=== PATIENT | male | born 1980 | race Caucasian/White ===

== ENCOUNTER 2021-03-20 22:23 | Emergency (ER) | payer BC, SELFPAY ==
[2021-03-20 22:31] VITALS: BP 170/103; PULSE 90; RESP 16; TEMP 36.4; O2SAT 98; BMI 25.1
--- NOTE | 2021-03-21 00:34 | ED_ITS ---
HPI - COVID General: Chief Complaint: COVID symptoms Stated Complaint: sob, wants covid test Time Seen by Provider: 03/21/21 00:25 Triage information: Has fever, cough or shortness of breath . No known COVID + exposure last 14 days History of Present Illness: HPI Narrative: 41-year-old male patient comes in today with complaints of sinus pressure, difficulty breathing through his nose, with worse symptoms when lying flat. Patient reports illness for about 10 to 14 days. Patient was concerned he may have COVID-19 as his brother is ill with it in the hospital. Patient denies any chest congestion or cough. Patient appears mildly unwell but not toxic. Patient appears in no pain. COVID 19 common symptoms: positive nasal congestion COVID Results: SARS-CoV-2 RNA (RT-PCR) Pending 03/20/21 22:36 03/20/21 Review of Systems ENMT: Reports: nasal congestion and sinus pain Physical Exam Const: COMMON NORMALS: patient oriented x3 and alert HENMT: COMMON NORMALS: TM's normal bilaterally NOSE: Nasal discharge present TYMPANIC MEMBRANE: TM's normal bilaterally Resp: COMMON NORMALS: clear to auscultation bilaterally EFFORT & INSPECTION: Yes able to speak in complete sentences AUSCULTATION: clear to auscultation bilaterally Cardio: COMMON NORMALS: regular rate and regular rhythm RATE: regular rate RHYTHM: regular rhythm GI: AUSCULTATION: Yes normoactive bowel sounds Extremity: COMMON NORMALS: normal to inspection Neuro: COMMON NORMALS: patient oriented x3 SENSORIUM/ORIENTATION: Yes alert Psych: ATTITUDE: Yes calm Skin: COMMON NORMALS: no rashes or lesions noted GENERAL SKIN EXAM: no rashes or lesions noted Course Vital Signs: Vital signs: Vital Signs Temperature 97.6 F 03/20/21 22:31 Pulse Rate 90 03/20/21 22:31 Respiratory Rate 16 03/20/21 22:31 Blood Pressure 170/103 03/20/21 22:31 Pulse Oximetry 98 03/20/21 22:31 MDM - COVID MDM Narrative: Medical decision making narrative: 41-year-old male patient comes in today with complaints of sinus pressure and nasal congestion. On exam lungs are clear to auscultation. Patient has a nasal turbinate erythema with congestion. No acute distress was noted. Patient appeared mildly unwell but not toxic. Vital signs were normal except for some elevation in blood pressure. Differential diagnosis includes rhinosinusitis bacterial, COVID-19, upper r espiratory infection. COVID-19 test was sent to [facility] labs for evaluation. Patient be treated for a bacterial rhinosinusitis due to the length of time patient has been ill. Patient was given a dose of doxycycline, 8 mg of dexamethasone in the ER to start medications. Patient will continue with Flonase and doxycycline outpatient. Patient was also given some Afrin in the ER to help with his nasal congestion. COVID Results: SARS-CoV-2 RNA (RT-PCR) Pending 03/20/21 22:36 03/20/21 Discharge Plan Discharge Patient Disposition: Home Clinical Impression: Acute rhinosinusitis, Exposure to severe acute respiratory syndrome coronavirus 2 (SARS-CoV-2) Condition: Stable Prescriptions: New doxycycline monohydrate 100 mg capsule 100 mg PO BID 7 Days Qty: 14 RF: 0 fluticasone propionate 50 mcg/actuation spray,suspension 1 spray intranasal BID Qty: 16 RF: 0 Discharge Orders: Discharge ED (Routine); Ordered 03/21/21 Ordered By: Boris Figueroa Discharge Diet: Usual diet Discharge Activity: Increase activity as tolerated Patient Instructions: Rhinosinusitis (ED) Activity Restrictions/Additional Instructions: Use fluticasone steroid nasal spray 1 spray each nostril twice a day until symptom relief. Use Afrin 2 sprays each nostril 3 times a day for nasal decongestant. Drink plenty of water. Take doxycycline 100 mg twice a day for the next 7 days. Follow-up with primary care as needed. Return to the ER for new concerns. We will contact you with the results of your quest COVID-19 test if it is positive. Coding Level of Care Code ED Cloth Dyeing Range Tender for Michelet Vigil
[2021-03-21] MEDS: doxycycline 100 mg Tablet PO (00:45)
[2021-03-21] MEDS: dexamethasone 4 mg Tablet 8 MG PO (00:45)
[2021-03-21] MEDS: oxymetazoline 0.05% Nasal Spray 15 mL 2 SPRAY NOSTRIL-B (00:47)
[2021-03-21 00:51] VITALS: PULSE 70; RESP 16; O2SAT 97
[2021-03-23 02:37] LABS: Quest SARS-CoV-2 RNA DETECTED (NOT DETECTED)
--- NOTE | 2021-03-23 09:18 | PC.NURSE ---
Notified of Positive COVID test
== END 2021-03-21 00:51 | disposition home or self-care (01) ==
PROVIDERS: Emergency Medicine; Emergency Provider Nurse Practitioner Family
DX: U07.1 COVID-19 (principal); J01.90 Acute sinusitis, unspecified
CPT/HCPCS: 87635; 99283; J8540

== ENCOUNTER 2022-06-16 13:59 | Day surgery (SDC) | payer BC, SELFPAY ==
[2022-06-16 14:04] VITALS: BP 187/118; PULSE 62; RESP 16; TEMP 36.7; O2SAT 99
--- NOTE | 2022-06-16 15:03 | ED_ITS ---
HPI - General Adult General: Chief complaint: Nausea/Vomiting/Diarrhea Stated complaint: UC sent for throat blockage Time Seen by Provider: 06/16/22 15:00 Source: patient Mode of arrival: ambulatory History of Present Illness: 42-year-old male presents emergency room with difficulty swallowing. He was eating some steak bits last night began to feel like he could not swallow has not been able to even swallow a little bit of water at this point. He said this happened multiple times before but usually is able to get it to follow through. No episodes of hematemesis. Onset (ago): hour(s) Severity: severe Relieving factors: none Exacerbating factors: none Associated symptoms: Reports nausea; Deny chest pain, confusion, cough, diaphoresis, decreased appetite, dyspnea, fevers/chills, headache(s), malaise, rash, palpitations, seizures, short of breath, syncope, vomiting or weakness Treatments prior to arrival: none Review of Systems Const: Denies: fever(s), chills, fatigue, malaise or diaphoresis ENMT: Reports: throat pain and odynophagia; Denies: ear or mastoid pain, nasal discharge or nasal congestion Card: Denies: chest pain, palpitations or syncope Resp: Denies: dyspnea GI: Reports: nausea; Denies: vomiting : Denies: flank pain, dysuria, urinary frequency or urinary urgency Skin/Breast: Denies: rash Neuro: Denies: headache(s) or confusion [facility] ED PFSH: Medical History Gastroenteritis Social History Smoking and tobacco status: never smoked Physical Exam Const: GENERAL APPEARANCE: cooperative and comfortable ORIENTATION/CONSCIOUSNESS: Yes awake, Yes oriented to person, Yes oriented to place and Yes oriented to time HENMT: COMMON NORMALS: normocephalic, atraumatic and hearing grossly normal bilaterally HEAD & SCALP: normocephalic and atraumatic Resp: COMMON NORMALS: normal respiratory effort, No retractions, No use of accessory muscles and clear to auscultation bilaterally AUSCULTATION: clear to auscultation bilaterally Cardio: COMMON NORMALS: regular rate, regular rhythm and No murmurs present (Cardio) RATE: regular rate RHYTHM: regular rhythm GI: COMMON NORMALS: Soft to palpation and No hepatosplenomegaly present AUSCULTATION: Yes normoactive bowel sounds PALPATION: Yes Soft to palpation, No Tenderness to palpation present (GI), No Guarding due to palpation present (GI) and Yes No hepatosplenomegaly present Extremity: COMMON NORMALS: normal to inspection, capillary refill normal, no clubbing, cyanosis or edema, no calf tenderness and no pedal edema Neuro: SENSORIUM/ORIENTATION: Yes oriented to person, Yes oriented to place and Yes oriented to time Skin: COMMON NORMALS: no rashes or lesions noted GENERAL SKIN EXAM: no rashes or lesions noted Course Vital Signs: Vital signs: Vital Signs Temperature 98.0 F 06/16/22 14:04 Pulse Rate 60 06/16/22 16:04 Respiratory Rate 16 06/16/22 14:04 Blood Pressure 177/95 06/16/22 16:04 Pulse Oximetry 98 06/16/22 16:04 Oxygen Delivery Me thod Room Air 06/16/22 16:04 MDM - General Adult Medical Decision Making Esophageal food bolus patient will need EGD. Discussed Dr. Diana he was prepped for the GI lab and taken directly from ER to the GI lab he will be discharged home from outpatient GI lab. Medical Records I reviewed the patient's medical records. Lab Data I reviewed the patient's lab results. 06/16/22 14:55 06/16/22 14:55 Laboratory Results WBC 5.4 10^3/uL (4.0-10.0) 06/16/22 14:55 RBC 5.36 10^6/uL (4.1-5.3) H 06/16/22 14:55 Hgb 16.8 g/dL (11.7-16.6) H 06/16/22 14:55 Hct 50.7 % (42.0-52.0) 06/16/22 14:55 MCV 94.6 fl (80-94) H 06/16/22 14:55 MCH 31.3 pg (28.0-34.0) 06/16/22 14:55 MCHC 33.1 g/dL (30.0-36.0) 06/16/22 14:55 RDW 13.2 % (12.1-15.1) 06/16/22 14:55 Plt Count 273 10^3/cmm (130-400) 06/16/22 14:55 MPV 10.3 fL (7.4-10.4) 06/16/22 14:55 Neut % (Auto) 57.0 % 06/16/22 14:55 Lymph % (Auto) 28.1 % 06/16/22 14:55 [place] % (Auto) 11.0 % 06/16/22 14:55 Eos % (Auto) 2.8 % 06/16/22 14:55 Baso % (Auto) 0.9 % 06/16/22 14:55 Neut # (Auto) 3.10 10^3/uL (1.8-7.7) 06/16/22 14:55 Lymph # (Auto) 1.5 10^3/uL (0.8-4.8) 06/16/22 14:55 [place] # (Auto) 0.6 10^3/uL (0.2-0.9) 06/16/22 14:55 Eos # (Auto) 0.2 10^3/uL (0.0-0.8) 06/16/22 14:55 Baso # (Auto) 0.1 10^3/uL (0.0-0.1) 06/16/22 14:55 Nucleated RBC % (auto) 0 % 06/16/22 14:55 Nucleated RBCs # 0.0 /100WBC 06/16/22 14:55 Sodium 139 mmol/L (136-145) 06/16/22 14:55 Potassium 4.4 mmol/L (3.5-5.1) 06/16/22 14:55 Chloride 105 mmol/L (98-107) 06/16/22 14:55 Carbon Dioxide 25 mmol/L (22-29) 06/16/22 14:55 Anion Gap 13.4 (5-19) 06/16/22 14:55 BUN 9 mg/dL (6-20) 06/16/22 14:55 Creatinine 1.0 mg/dL (0.7-1.2) 06/16/22 14:55 GFR Calculation 81.9 mL/min (90-130) L 06/16/22 14:55 Glucose 103 mg/dL (65-115) 06/16/22 14:55 Calculated Osmolality 287 mOsm/kg (285-295) 06/16/22 14:55 Calcium 9.2 mg/dL (8.5-10.5) 06/16/22 14:55 Total Bilirubin 0.3 mg/dL (0.15-1.2) 06/16/22 14:55 AST 19 U/L (0-40) 06/16/22 14:55 ALT 26 U/L (0-41) 06/16/22 14:55 Alkaline Phosphatase 83 U/L (40-130) 06/16/22 14:55 Total Protein 7.5 g/dL (6.6-8.7) 06/16/22 14:55 Albumin 4.4 g/dL (3.5-5.2) 06/16/22 14:55 Globulin 3.1 g/dL (1.3-4.6) 06/16/22 14:55 Lipase 41 U/L (13-60) 06/16/22 14:55 Discharge Plan Discharge Patient Disposition: Placed in Observation Clinical Impression: Food impaction of esophagus Condition: Stable Coding Level of Care Code ED Interactive Media Marketing Director for Michelet Vigil
[2022-06-16 15:06] LABS: Basophils # 0.1 10^3/uL (0.0-0.1); Basophils % 0.9 %; Eosinophils # 0.2 10^3/uL (0.0-0.8); Eosinophils % 2.8 %; Hematocrit 50.7 % (42.0-52.0); Hemoglobin 16.8 g/dL (11.7-16.6); Lymphocytes # 1.5 10^3/uL (0.8-4.8); Lymphocytes % 28.1 %; Mean Corpuscular HGB Conc 33.1 g/dL (30.0-36.0); Mean Corpuscular Hemoglobin 31.3 pg (28.0-34.0); Mean Corpuscular Volume 94.6 fl (80-94); Mean Platelet Volume 10.3 fL (7.4-10.4); Monocytes # 0.6 10^3/uL (0.2-0.9); Nucleated Red Blood Cells % 0 %; Platelet Count 273 10^3/cmm (130-400); Red Blood Count 5.36 10^6/uL (4.1-5.3); Red Cell Distribution Width 13.2 % (12.1-15.1); White Blood Count 5.4 10^3/uL (4.0-10.0)
--- NOTE | 2022-06-16 15:15 | DCPLANNER ---
international bank manager seen patient due to no primary care physician. international bank manager offered to help patient get established with a primary care physician - patient declines at this time.
[2022-06-16 15:23] LABS: Alanine Aminotransferase 26 U/L (0-41); Albumin Level 4.4 g/dL (3.5-5.2); Alkaline Phosphatase 83 U/L (40-130); Anion Gap 13.4 (5-19); Aspartate Amino Transferase 19 U/L (0-40); Blood Urea Nitrogen 9 mg/dL (6-20); Calcium 9.2 mg/dL (8.5-10.5); Carbon Dioxide 25 mmol/L (22-29); Chloride 105 mmol/L (98-107); Globulin 3.1 g/dL (1.3-4.6); Glomerular Filtration Rate 81.9 mL/min (90-130); Glucose 103 mg/dL (65-115); Lipase 41 U/L (13-60); Osmolality Calculated 287 mOsm/kg (285-295); Potassium 4.4 mmol/L (3.5-5.1); Sodium 139 mmol/L (136-145); Total Bilirubin 0.3 mg/dL (0.15-1.2); Total Protein 7.5 g/dL (6.6-8.7)
[2022-06-16] MEDS: sodium chloride 0.9% 1,000 ML 999 ML IV (15:48)
[2022-06-16 16:04] VITALS: BP 177/95; PULSE 60; O2SAT 98
--- NOTE | 2022-06-16 16:24 | ANES.PREANE2 ---
Pre-Anesthetic Assessment Height/Weight: Height 1.78 m Weight 86.183 kg Temp Pulse Resp BP Pulse Ox O2 Del Method 98.0 F 60 16 177/95 98 Room Air 06/16/22 14:04 06/16/22 16:04 06/16/22 14:04 06/16/22 16:04 06/16/22 16:04 06/16/22 16:04 Preop Diagnosis: Food Bolus Familial anesthetic complications: None Was Beta Adeola taken within 24 hours: N/A Was Clonidine taken within 24 hours: N/A Social No alcohol and No tobacco Exam alert, oriented x 3 and regular rate & rhythm Airway Submandibular: within normal limits Cervical ROM: within normal limits Mallampati: Class II Dentition: full History/ROS No significant history except as noted Pulmonary None reported CV/HEM None reported None reported Hepatic None reported GI Food bolus Metabolic None reported Musc/skel None reported Neuropsych None reported Anesthetic Plan ASA status: 1 Anesthesia: Anesthesia Evaluation and General Risk of > 500 ml blood loss (7ml/kg in children): No Medications/Allergies Home Medications Medication Instructions Recorded Confirmed Last Taken Type No Known Home Medications 05/15/21 06/16/22 Unknown History Allergies Allergy/AdvReac Type Severity Reaction Status Date / Time No Known Allergies Allergy Verified 06/16/22 14:09 [facility] Anesthesia Medical History Gastroenteritis Social History Smoking and tobacco status: never smoked Data Anesthesia 06/16/22 14:55 06/16/22 14:55 Short CBC 06/16/22 Range/Units 14:55 WBC 5.4 (4.0-10.0) 10^3/uL Hgb 16.8 H (11.7-16.6) g/dL Hct 50.7 (42.0-52.0) % MCV 94.6 H (80-94) fl Plt Count 273 (130-400) 10^3/cmm Neut % (Auto) 57.0 % Neut # (Auto) 3.10 (1.8-7.7) 10^3/uL BMP 06/16/22 14:55 Sodium 139 Potassium 4.4 Chloride 105 Carbon Dioxide 25 BUN 9 Creatinine 1.0 Glucose 103 Calcium 9.2 Liver Function 06/16/22 Range/Units 14:55 Total Bilirubin 0.3 (0.15-1.2) mg/dL AST 19 (0-40) U/L ALT 26 (0-41) U/L Alkaline Phosphatase 83 (40-130) U/L Albumin 4.4 (3.5-5.2) g/dL Cardiac Studies: No Data to Display
[2022-06-16] MEDS: sodium chloride 0.9% 1,000 ML 30 ML IV (16:34)
--- NOTE | 2022-06-16 16:35 | P.HP_ITS ---
Providers/Chief Complaint Chief Complaint: UC sent for throat blockage History of Present Illness Ata Summers is a 42 year old male who was eating steak and shrimp last night and has since felt food stuck in his distal esophagus. He is unable to drink water but he is able to swallow his saliva. He has some dull constant epigastric pain that does not radiate Review of Systems General: Reports: 10 or more systems reviewed and unremarkable except in HPI and below Medications/Allergies Home Medications Medication Instructions Recorded Confirmed Last Taken Type No Known Home Medications 05/15/21 06/16/22 Unknown History Allergies Allergy/AdvReac Type Severity Reaction Status Date / Time No Known Allergies Allergy Verified 06/16/22 14:09 PFSH Acute PFSH: Medical History Gastroenteritis Social History Smoking and tobacco status: never smoked Vitals/I&O/Wt Last Vital Signs Temp 98.0 F 06/16/22 14:04 Pulse 60 06/16/22 16:04 Resp 16 06/16/22 14:04 BP 177/95 06/16/22 16:04 Pulse Ox 98 06/16/22 16:04 O2 Del Method Room Air 06/16/22 16:04 Weight last 48 hrs Weight 190 lb Physical Exam Narrative: General : Patient is well developed , no acute distress, oriented x3 Head : Normal cephalic, a-traumatic. Ears : Pinnae and external canal are normal. Hearing is normal. Eyes : PERRLA, Sclera and injection are normal. No conjunctival discharge. Nose : Mucous membranes are without erythema. Throat : buccal mucosa is normal, gums are without significant recession or hypertrophy. Lungs : Equal chest rise bilaterally, no use of accessory muscles, trachea is midline. Cor : Rate and rhythm are normal. Abdomen : Soft, ND, NT, no g/r/m Extremities : No edema, no cyanosis or clubbing, dorsalis pedis pulses are present bilaterally, non-tender to palpation of calves. Upper extremities are normal bilaterally. Back : non-tender to palpation, no CVA tenderness. Neuro : CN II - XII intact, Upper and lower extremities have equal and full st rength Data 06/16/22 14:55 06/16/22 14:55 A&P Assessment and plan (1) Food impaction of esophagus: Plan EGD The risks and benefits of the procedure, including bleeding, infection, intestinal perforation requiring surgery, missed lesion were explained to the patient. The patient is understanding of the risks and wishes to proceed. I will I will likely discharge him from the GI lab with follow-up in my office in 2 weeks Attestations Medical Necessity Statement*: Patient will likely be discharged home after the procedure Coding Level of Care Code Acute Code for Chg Fwd Diagnoses Food impaction of esophagus T18.128A
--- NOTE | 2022-06-16 16:51 | PM.DCS ---
Discharge Providers Date of Discharge: June 16, 2022 Attending Provider at Discharge: Magdaleno Diana DO Diagnoses at Discharge Discharge Diagnosis (1) Food impaction of esophagus: Status: Acute Reason for Visit Reason for Visit: UC sent for throat blockage Hospital Course Hospital Course Is a very pleasant 42-year-old gentleman who came to the hospital with a 12-hour history of esophageal food impaction. He underwent an EGD with clearance of the food bolus. He was discharged home in good condition Physical Exam Narrative: General : Patient is well developed , no acute distress, oriented x3 Head : Normal cephalic, a-traumatic. Ears : Pinnae and external canal are normal. Hearing is normal. Eyes : PERRLA, Sclera and injection are normal. No conjunctival discharge. Nose : Mucous membranes are without erythema. Throat : buccal mucosa is normal, gums are without significant recession or hypertrophy. Lungs : Equal chest rise bilaterally, no use of accessory muscles, trachea is midline. Cor : Rate and rhythm are normal. Abdomen : Soft, ND, NT, no g/r/m Extremities : No edema, no cyanosis or clubbing, dorsalis pedis pulses are present bilaterally, non-tender to palpation of calves. Upper extremities are normal bilaterally. Back : non-tender to palpation, no CVA tenderness. Neuro : CN II - XII intact, Upper and lower extremities have equal and full strength Discharge Data Studies Completed and Pending Pending at discharge Category Date Time Status Urinalysis Stat Lab 06/16/22 14:33 Uncollected Laboratory Results WBC 5.4 10^3/uL (4.0-10.0) 06/16/22 14:55 RBC 5.36 10^6/uL (4.1-5.3) H 06/16/22 14:55 Hgb 16.8 g/dL (11.7-16.6) H 06/16/22 14:55 Hct 50.7 % (42.0-52.0) 06/16/22 14:55 MCV 94.6 fl (80-94) H 06/16/22 14:55 MCH 31.3 pg (28.0-34.0) 06/16/22 14:55 MCHC 33.1 g/dL (30.0-36.0) 06/16/22 14:55 RDW 13.2 % (12.1-15.1) 06/16/22 14:55 Plt Count 273 10^3/cmm (130-400) 06/16/22 14:55 MPV 10.3 fL (7.4-10.4) 06/16/22 14:55 Neut % (Auto) 57.0 % 06/16/22 14:55 Lymph % (Auto) 28.1 % 06/16/22 14:55 [place] % (Auto) 11.0 % 06/16/22 14:55 Eos % (Auto) 2.8 % 06/16/22 14:55 Baso % (Auto) 0.9 % 06/16/22 14:55 Neut # (Auto) 3.10 10^3/uL (1.8-7.7) 06/16/22 14:55 Lymph # (Auto) 1.5 10^3/uL (0.8-4.8) 06/16/22 14:55 [place] # (Auto) 0.6 10^3/uL (0.2-0.9) 06/16/22 14:55 Eos # (Auto) 0.2 10^3/uL (0.0-0.8) 06/16/22 14:55 Baso # (Auto) 0.1 10^3/uL (0.0-0.1) 06/16/22 14:55 Nucleated RBC % (auto) 0 % 06/16/22 14:55 Nucleated RBCs # 0.0 /100WBC 06/16/22 14:55 Sodium 139 mmol/L (136-145) 06/16/22 14:55 Potassium 4.4 mmol/L (3.5-5.1) 06/16/22 14:55 Chloride 105 mmol/L (98-107) 06/16/22 14:55 Carbon Dioxide 25 mmol/L (22-29) 06/16/22 14:55 Anion Gap 13.4 (5-19) 06/16/22 14:55 BUN 9 mg/dL (6-20) 06/16/22 14:55 Creatinine 1.0 mg/dL (0.7-1.2) 06/16/22 14:55 GFR Calculation 81.9 mL/min (90-130) L 06/16/22 14:55 Glucose 103 mg/dL (65-115) 06/16/22 14:55 Calculated Osmolality 287 mOsm/kg (285-295) 06/16/22 14:55 Calcium 9.2 mg/dL (8.5-10.5) 06/16/22 14:55 Total Bilirubin 0.3 mg/dL (0.15-1.2) 06/16/22 14:55 AST 19 U/L (0-40) 06/16/22 14:55 ALT 26 U/L (0-41) 06/16/22 14:55 Alkaline Phosphatase 83 U/L (40-130) 06/16/22 14:55 Total Protein 7.5 g/dL (6.6-8.7) 06/16/22 14:55 Albumin 4.4 g/dL (3.5-5.2) 06/16/22 14:55 Globulin 3.1 g/dL (1.3-4.6) 06/16/22 14:55 Lipase 41 U/L (13-60) 06/16/22 14:55 Procedures Performed EGD with clearance of esophageal food impaction Vitals Last Vital Signs Temp 98.0 F 06/16/22 14:04 Pulse 60 06/16/22 16:04 Resp 16 06/16/22 14:04 BP 177/95 06/16/22 16:04 Pulse Ox 98 06/16/22 16:04 O2 Del Method Room Air 06/16/22 16:04 Discharge Plan Discharge Patient Disposition: Home Condition: Stable Prescriptions: No Action No Known Home Medications Discharge Orders: Discharge Order (Routine); Ordered 06/16/22 Ordered By: Magdaleno Diana Referrals: Magdaleno Diana DO [Physician] - 2 weeks Discharge Diet: Advance as tolerated Discharge Activity: Resume usual activity Discharge Attestations Time Spent in Discharge Care*: less than 30 min Quality Metrics Clinical Quality Measures [ No reported AMI, CVA or VTE this stay] Coding Level of Care Code Acute Code for Chg Fwd Diagnoses Food impaction of esophagus T18.128A
[2022-06-16 17:00] VITALS: BP 159/103; PULSE 64; RESP 18; TEMP 36.2; O2SAT 99
--- NOTE | 2022-06-16 17:10 | ANE.PACU2 ---
Inpatient post-anesthesia follow up: Airway intact: Yes Vital signs: Temperature 97.2 F Pulse Rate 64 Respiratory Rate 18 Blood Pressure 159/103 Pulse Oximetry 99 Oxygen Delivery Me thod Room Air Oxygen Flow Rate Fraction of Inspir ed Oxygen Hydration adequate: Yes Nausea and vomiting: No Pain level: 2 Mental status: Baseline
[2022-06-16 17:13] VITALS: BP 158/106; PULSE 62; RESP 18; O2SAT 98
[2022-06-16 17:28] VITALS: BP 155/99; PULSE 63; RESP 18; O2SAT 99
== END 2022-06-16 17:52 | disposition home or self-care (01) ==
LOC: ER 15:05 → GILAB 15:41
PROVIDERS: Emergency Provider Family Medicine; Visit Provider Surgery
PROC: 0DJ08ZZ Inspection of Upper Intestinal Tract, Via Natural or Artificial Opening Endoscopic (ICD-10-PCS; CPT 43235; principal; 2022-06-16 16:30)
DX: X58.XXXA Exposure to other specified factors, initial encounter (principal); T18.128A Food in esophagus causing other injury, initial encounter; Y99.9 Unspecified external cause status
CPT/HCPCS: 36415; 43247; 80053; 83690; 85025; J0330; J1100; J1610; J2405; J2704; J3010; J3490; J7030

== ENCOUNTER 2022-07-24 06:28 | Day surgery (SDC) | payer BC, SELFPAY ==
[2022-07-22 10:54] VITALS: BMI 26.4
[2022-07-24 06:45] VITALS: BP 135/98; PULSE 66; RESP 18; TEMP 36.5; O2SAT 98
[2022-07-24] MEDS: sodium chloride 0.9% 1,000 ML 30 ML IV (06:54)
--- NOTE | 2022-07-24 06:58 | ANES.PREANE2 ---
Pre-Anesthetic Assessment Height/Weight: Height 1.8 m Weight 86.183 kg Temp Pulse Resp BP Pulse Ox O2 Del Method 97.7 F 66 18 135/98 98 Room Air 07/24/22 06:45 07/24/22 06:45 07/24/22 06:45 07/24/22 06:45 07/24/22 06:45 07/24/22 06:45 Operation Date: 07/24/22 08:00 [place] Procedures p [id number] egd with balloon dialation K21.9,R13.10(Not Applicable) - Magdaleno Diana DO Familial anesthetic complications: none Was Beta Adeola taken within 24 hours: N/A Was Clonidine taken within 24 hours: N/A Last intake: Intake Last Liquid Date 07/23/22 Last Liquid Time 22:00 Last Solid Date 07/23/22 Last Solid Time 22:00 Social No alcohol and No tobacco Exam alert and oriented x 3 Airway Submandibular: within normal limits Cervical ROM: within normal limits Mallampati: Class I Dentition: full History/ROS No significant complaints Pulmonary None reported CV/HEM None reported None reported Hepatic None reported GI None reported Metabolic None reported Musc/skel None reported Neuropsych None reported Anesthetic Plan ASA status: 1 Anesthesia: Anesthesia Evaluation and MAC Risk of > 500 ml blood loss (7ml/kg in children): No Medications/Allergies Home Medications Medication Instructions Recorded Confirmed Last Taken Type omeprazole 40 mg capsule,delayed 40 mg PO BID 6 weeks #84 caps 07/02/22 07/24/22 07/23/22 Rx release cetirizine 10 mg tablet 10 mg PO DAILY PRN Allergy Symptoms 07/22/22 07/24/22 07/23/22 History Allergies Allergy/AdvReac Type Severity Reaction Status Date / Time protonix Allergy flu like Uncoded 07/22/22 10:50 symtoms Current Medications Generic Name Dose Route Start Last Admin Trade Name Freq PRN Reason Stop Dose Admin Sodium Chloride 1,000 mls @ 30 mls/hr 07/24/22 06:45 07/24/22 06:54 Sodium Chloride 0.9% IV 07/25/22 06:44 30 mls/hr .Q24H RAJENDRA Administration PFSH Anesthesia Medical History Gastroenteritis Surgical History History of exploratory laparotomy Hx of hernia repair right Family History Denies family history of Anesthesia complication Social History Smoking and tobacco status: former smoker Alcohol intake: current Alcohol intake frequency: holidays/special occasions only Data Anesthesia Cardiac Studies: No Data to Display
--- NOTE | 2022-07-24 08:04 | W.PM.OPSUD ---
Surgery/Procedure H&P Update DATE OF PROCEDURE: July 24, 2022 DATE H&P PERFORMED: 06/30/22 H&P UPDATE INFORMATION: I have reviewed H&P completed within last 30 days, I have examined patient prior to procedure and No changes to prior documentation PLANNED PROCEDURE: Operation Date: 07/24/22 08:00 Proposed Procedures p [id number] egd with balloon dialation K21.9,R13.10(Not Applicable) - Magdaleno Diana,
[2022-07-24 08:19] VITALS: BP 118/88; PULSE 70; RESP 16; TEMP 36.1; O2SAT 95
[2022-07-24 08:30] VITALS: BP 123/81; PULSE 67; RESP 16; O2SAT 91
--- NOTE | 2022-07-24 14:18 | ANE.PACU2 ---
Inpatient post-anesthesia follow up: Airway intact: Yes Vital signs: Temperature 97 F Pulse Rate 67 Respiratory Rate 16 Blood Pressure 123/81 Pulse Oximetry 91 Oxygen Delivery Me thod Room Air Oxygen Flow Rate Fraction of Inspir ed Oxygen Hydration adequate: Yes Nausea and vomiting: No Pain level: 2 Mental status: Baseline
== END 2022-07-24 08:46 | disposition home or self-care (01) ==
PROVIDERS: Visit Provider Surgery
PROC: 0DJ08ZZ Inspection of Upper Intestinal Tract, Via Natural or Artificial Opening Endoscopic (ICD-10-PCS; CPT 43235; principal; 2022-07-24 08:00)
DX: R13.10 Dysphagia, unspecified (principal); K21.9 Gastro-esophageal reflux disease without esophagitis; K29.50 Unspecified chronic gastritis without bleeding; Z87.891 Personal history of nicotine dependence
CPT/HCPCS: 43239; 88305; 88342; J2704; J7030

== ENCOUNTER 2023-01-25 07:27 | Day surgery (SDC) | payer BC, SELFPAY ==
[2023-01-25] VITALS (10 sets, daily range): BP systolic 127–168; BP diastolic 90–117; PULSE 64–108; RESP 16–18; TEMP 36.2–37.1; O2SAT 94–98; BMI 27.1
--- NOTE | 2023-01-25 07:56 | W.ED.ABDPA2 ---
HPI - Abdominal Pain General: Chief Complaint: Abdominal Pain Stated Complaint: N/V Time Seen by Provider: 01/25/23 07:32 Source: patient Mode of arrival: ambulatory History of Present Illness: 42-year-old male presents to the emergency room with complaints of nausea and vomiting unable to keep anything down. He has had a history of esophageal food impaction in the past. He has been able to manage secretions most of the time. This began after he was eating some steak. He has had this several times in the past, last documented time was in May of this year. Pertinent past history: other (Esophageal food impaction) Onset (ago): day(s) (1) Quality: cramping and fullness Exacerbating factors: nothing Relieving factors: nothing Associated Symptoms: Denies anorexia, belching, bloating, change in bowel habits, change in stool character, chills, coffee ground emesis, constipation, GI cramping, diarrhea, dyspepsia, dysuria, excessive flatus, fever(s), heartburn, hematochezia, hematuria, hematemesis, fecal incontinence, loose stools, melena, nausea, poor appetite, syncope and vomiting Review of Systems Const: Denies: fever(s) or chills Card: Denies: chest pain or syncope Resp: Denies: dyspnea GI: Denies: abdominal pain, nausea, vomiting, hematemesis, coffee ground emesis, heartburn, diarrhea, constipation, bloating, GI cramping, belching, excessive flatus, fecal incontinence, change in bowel habits, change in stool character, hematochezia or melena : Denies: dysuria, urinary frequency, urinary urgency or hematuria Musc: Denies: neck pain or back pain Skin/Breast: Denies: rash PFSH ED PFSH: Medical History Gastroenteritis Surgical History History of exploratory laparotomy Hx of hernia repair right Family History Denies family history of Anesthesia complication Social History Smoking and tobacco/nicotine status: former use of tobacco/nicotine Alcohol intake: current Alcohol intake frequency: holidays/special occasions only Physical Exam Const: GENERAL APPEARANCE: cooperative and comfortable ORIENTATION/CONSCIOUSNESS: Yes awake, Yes oriented to person, Yes oriented to place and Yes oriented to time HENMT: COMMON NORMALS: normocephalic, atraumatic and hearing grossly normal bilaterally HEAD & SCALP: normocephalic and atraumatic Resp: COMMON NORMALS: normal respiratory effort, No retractions, No use of accessory muscles and clear to auscultation bilaterally AUSCULTATION: clear to auscultation bilaterally Cardio: COMMON NORMALS: regular rate, regular rhythm and No murmurs present (Cardio) RATE: regular rate RHYTHM: regular rhythm GI: COMMON NORMALS: Soft to palpation and No hepatosplenomegaly present AUSCULTATION: Yes normoactive bowel sounds PALPATION: Yes Soft to palpation, No Tenderness to palpation present (GI), No Guarding due to palpation present (GI) and Yes No hepatosplenomegaly present Extremity: COMMON NORMALS: normal to inspection, capillary refill normal, no clubbing, cyanosis or edema, no calf tenderness and no pedal edema Neuro: SENSORIUM/ORIENTATION: Yes oriented to person, Yes oriented to place and Yes oriented to time Skin: COMMON NORMALS: no rashes or lesions noted GENERAL SKIN EXAM: no rashes or lesions noted Course Vital Signs: Vital signs: Vital Signs Temperature 98.7 F 01/25/23 07:44 Pulse Rate 80 01/25/23 07:44 Respiratory Rate 16 01/25/23 07:44 Blood Pressure 163/112 01/25/23 07:44 Pulse Oximetry 98 01/25/23 07:44 Oxygen Delivery Me thod Room Air 01/25/23 07:44 MDM - Abdominal Pain Medical Decision Making Esophageal food impaction discussed with Dr. Wilde who is on-call for surgery. Patient to be prepped to go to outpatient GI lab for EGD. Medical Records I reviewed the patient's medical records. No radiology studies performed this visit Discharge Plan Discharge Patient Disposition: Placed in Observation Clinical Impression: Esophageal obstruction due to food impaction Coding Level of Care Code ED [employer] for Michelet Vigil
[2023-01-25] MEDS: sodium chloride 0.9% 1,000 ML 999 ML IV (08:26)
[2023-01-25] MEDS: ondansetron 2 mg/ML SDV 2 mL 4 MG IVP (08:26)
--- NOTE | 2023-01-25 08:29 | P.CONIM_ITS ---
Providers/Reason For Consult Consulting Physician/Specialty*: General surgery Reason for Consult*: Esophageal food bolus History of Present Illness History of Present Illness Ata Summers is a 42 year old male with history of previous food impactions and esophagus who presents after eating a steak, after which he was unable to swallow any solid or liquid food. This happened yesterday, since then patient has been unable to swallow liquids. He had previous history of previous esop hageal food bolus impactions, most recent EGD done in June 2022 showed no evidence of esophageal pathology biopsies taken and show no Helicobacter pylori just mild gastritis. Review of Systems General: Reports: 10 or more systems reviewed and unremarkable except in HPI and below Medications/Allergies Home Medications Medication Instructions Recorded Confirmed Last Taken Type cetirizine 10 mg tablet 10 mg PO DAILY PRN Allergy Symptoms 07/22/22 08/05/22 07/23/22 History omeprazole 40 mg capsule,delayed 40 mg PO BID 6 weeks #84 caps 08/05/22 08/05/22 Unknown Rx release Allergies Allergy/AdvReac Type Severity Reaction Status Date / Time pantoprazole [From Protonix] Allergy Flu Like Verified 08/05/22 16:51 Symptoms Current Medications Generic Name Dose Route Start Last Admin Trade Name Freq PRN Reason Stop Dose Admin Sodium Chloride 1,000 mls @ 999 mls/hr 01/25/23 08:00 01/25/23 08:26 Sodium Chloride 0.9% IV 01/25/23 10:00 999 mls/hr .Q1H1M RAJENDRA Administration PFSH Acute PFSH: Medical History Gastroenteritis Surgical History History of exploratory laparotomy Hx of hernia repair right Family History Denies family history of Anesthesia complication Social History Smoking and tobacco/nicotine status: former use of tobacco/nicotine Alcohol intake: current Alcohol intake frequency: holidays/special occasions only Vitals/I&O/Wt Last Vital Signs Temp 98.7 F 01/25/23 07:44 Pulse 80 01/25/23 07:44 Resp 16 01/25/23 07:44 BP 163/112 01/25/23 07:44 Pulse Ox 98 01/25/23 07:44 O2 Del Method Room Air 01/25/23 07:44 Weight last 48 hrs Weight 195 lb Physical Exam Narrative: General : Patient is well developed , no acute distress, oriented x3 Head : Normal cephalic, a-traumatic. Nose : Mucous membranes are without erythema. Lungs : Equal chest rise bilaterally, no use of accessory muscles, trachea is midline. CV : Rate and rhythm are normal. Abdomen : Soft, ND, NT, no g/r/m Extremities : No edema. Upper extremities are normal bilaterally. Back : non-tender to palpation, no CVA tenderness. Data 01/25/23 08:15 01/25/23 08:15 A&P Assessment and plan (1) Esophageal obstruction due to food impaction: Plan After complete history, physical examination and review of all available clinical data the following is my assessment. Patient will likely require an food bolus impaction in the esophagus, patient will require endoscopic evaluation for dislodgment of food bolus and possible retrieval. All the risk and benefits of the procedure including the risk of damage to soft tissue of the mouth larynx, perforation of the esophagus stomach or duodenum requiring surgical intervention and transfer to higher level of care and need for additional interventions were explained to the patient. Patient agrees with the risks and wishes to proceed. EGD will be booked for the next available endoscopy block today Coding Level of Care Code Acute Code for Chg Fwd Diagnoses Esophageal obstruction due to food impaction T18.128A; [id number].F3XA
[2023-01-25 08:32] LABS: Basophils # 0.1 10^3/uL (0.0-0.1); Basophils % 0.8 %; Eosinophils # 0.1 10^3/uL (0.0-0.8); Eosinophils % 2.3 %; Hematocrit 53.5 % (37-53); Lymphocytes # 1.5 10^3/uL (0.8-4.8); Lymphocytes % 24.8 %; Mean Corpuscular HGB Conc 33.1 g/dL (30-55); Mean Corpuscular Hemoglobin 31.2 pg (27-33); Mean Corpuscular Volume 94.4 fl (82-101); Mean Platelet Volume 10.4 fL (7.4-10.4); Monocytes # 0.7 10^3/uL (0.2-0.9); Monocytes % 11.6 %; Neutrophils # 3.65 10^3/uL (1.8-7.7); Neutrophils % 60.3 %; Nucleated Red Blood Cells % 0 %; Platelet Count 259 10^3/cmm (157-399); Red Blood Count 5.67 10^6/uL (3.85-5.65); Red Cell Distribution Width 12.8 % (12.1-15.1); White Blood Count 6.05 10^3/uL (3.29-11.43)
[2023-01-25 08:51] LABS: Alanine Aminotransferase 39 U/L (0-41); Albumin Level 4.9 g/dL (3.5-5.2); Alkaline Phosphatase 95 U/L (40-130); Anion Gap 13.8 (5-19); Aspartate Amino Transferase 22 U/L (0-40); Blood Urea Nitrogen 10 mg/dL (6-20); Calcium 9.9 mg/dL (8.5-10.5); Carbon Dioxide 27 mmol/L (22-29); Chloride 103 mmol/L (98-107); Globulin 2.9 g/dL (1.3-4.6); Glomerular Filtration Rate 81.9 mL/min (90-130); Glucose 105 mg/dL (65-115); Lipase 44 U/L (13-60); Osmolality Calculated 289 mOsm/kg (285-295); Potassium 3.8 mmol/L (3.5-5.1); Sodium 140 mmol/L (136-145); Total Bilirubin 0.5 mg/dL (0.15-1.2); Total Protein 7.8 g/dL (6.6-8.7)
--- NOTE | 2023-01-25 09:03 | PC.NURSE ---
THIS RN ASSUMED CARE AT THIS TIME
--- NOTE | 2023-01-25 09:07 | ANES.PREANE2 ---
Pre-Anesthetic Assessment Height/Weight: Height 1.8 m Weight 88.451 kg Temp Pulse Resp BP Pulse Ox O2 Del Method 98.7 F 64 16 150/99 94 Room Air 01/25/23 07:44 01/25/23 09:03 01/25/23 09:03 01/25/23 09:03 01/25/23 09:03 01/25/23 09:03 Preop Diagnosis: Food bolus impaction Operation Date: 01/25/23 10:00 Proposed Procedures p EGD(Not Applicable) - Stefano Wilde MD Familial anesthetic complications: None Was Beta Adeola taken within 24 hours: N/A Was Clonidine taken within 24 hours: N/A Last intake: 0400 (food bolus) Social No alcohol and No tobacco Exam alert, oriented x 3, clear to auscultation bilaterally and regular rate & rhythm Airway Mallampati: Class I Dentition: full GI Gastroesophageal Reflux Disease Anesthetic Plan ASA status: 1 Anesthesia: General Risk of > 500 ml blood loss (7ml/kg in children): No Medications/Allergies Home Medications Medication Instructions Recorded Confirmed Last Taken Type cetirizine 10 mg tablet 10 mg PO DAILY PRN Allergy Symptoms 07/22/22 01/25/23 07/23/22 History omeprazole 40 mg capsule,delayed 40 mg PO BID 6 weeks #84 caps 08/05/22 01/25/23 Unknown Rx release acetaminophen 650 mg 1,300 mg PO Q8H PRN Pain 01/25/23 01/25/23 01/25/23 History tablet,extended release Allergies Allergy/AdvReac Type Severity Reaction Status Date / Time pantoprazole [From Protonix] Allergy Flu Like Verified 01/25/23 08:36 Symptoms Current Medications Generic Name Dose Route Start Last Admin Trade Name Freq PRN Reason Stop Dose Admin Sodium Chloride 1,000 mls @ 999 mls/hr 01/25/23 08:00 01/25/23 08:26 Sodium Chloride 0.9% IV 01/25/23 10:00 999 mls/hr .Q1H1M RAJENDRA Administration PFSH Anesthesia Medical History Gastroenteritis Surgical History History of exploratory laparotomy Hx of hernia repair right Family History Denies family history of Anesthesia complication Social History Smoking and tobacco/nicotine status: former use of tobacco/nicotine Alcohol intake: current Alcohol intake frequency: holidays/special occasions only Data Anesthesia 01/25/23 08:15 01/25/23 08:15 Short CBC 01/25/23 Range/Units 08:15 WBC 6.05 (3.29-11.43) 10^3/uL Hgb 17.70 H (11.27-16.99) g/dL Hct 53.5 H (37-53) % MCV 94.4 (82-101) fl Plt Count 259 (157-399) 10^3/cmm Neut % (Auto) 60.3 % Neut # (Auto) 3.65 (1.8-7.7) 10^3/uL BMP 01/25/23 08:15 Sodium 140 Potassium 3.8 Chloride 103 Carbon Dioxide 27 BUN 10 Creatinine 1.0 Glucose 105 Calcium 9.9 Liver Function 01/25/23 Range/Units 08:15 Total Bilirubin 0.5 (0.15-1.2) mg/dL AST 22 (0-40) U/L ALT 39 (0-41) U/L Alkaline Phosphatase 95 (40-130) U/L Albumin 4.9 (3.5-5.2) g/dL Cardiac Studies: No Data to Display
--- NOTE | 2023-01-25 09:12 | PC.NURSE ---
PATIENT TAKEN TO GI LAB BY GI NURSE VIA WHEELCHAIR.
[2023-01-25] MEDS: sodium chloride 0.9% 1,000 ML 30 ML IV (09:57)
--- NOTE | 2023-01-25 10:32 | PC.NURSE ---
Patient came back from procedure wide awake and talking. No issues in vital signs. Patient is ready to be discharged.
--- NOTE | 2023-01-25 10:40 | ANE.PACU2 ---
Inpatient post-anesthesia follow up: Airway intact: Yes Vital signs: Temperature 97.6 F Pulse Rate 71 Respiratory Rate 18 Blood Pressure 140/90 Pulse Oximetry 97 Oxygen Delivery Me thod Room Air Oxygen Flow Rate Fraction of Inspir ed Oxygen Hydration adequate: Yes Nausea and vomiting: No Pain level: 1 Mental status: Baseline
== END 2023-01-25 10:53 | disposition home or self-care (01) ==
LOC: ER 08:35 → GILAB 09:12
PROVIDERS: Emergency Provider Family Medicine; Visit Provider Surgery
PROC: 0DJ08ZZ Inspection of Upper Intestinal Tract, Via Natural or Artificial Opening Endoscopic (ICD-10-PCS; CPT 43235; principal; 2023-01-25 10:00)
DX: T18.128A Food in esophagus causing other injury, initial encounter (principal); K29.80 Duodenitis without bleeding; K29.70 Gastritis, unspecified, without bleeding; Z87.891 Personal history of nicotine dependence
CPT/HCPCS: 43235; 43247; 80053; 83690; 85025; J0330; J1100; J2405; J2704; J7030